=== PATIENT | female | born 1940 | race Caucasian/White ===

== ENCOUNTER → 2016-12-02 | Outpatient (CLI) | payer BC ==
[~2016-12-02] MED LIST: ALBU1AER9 INH; AMLO-114 PO; ASPI-232 PO; ATEN50TA8 PO; CLX20 PO; FLNIN NAE; FLVHFA220 INH; LPT/40 PO; LSX20 PO; MELO15TA4 PO; RANI300T2 PO; TRAM-10 PO
--- NOTE | 2016-12-04 12:33 | MAMMOGRAPHY REPORT ---
BILATERAL DIGITAL SCREENING MAMMOGRAM TOMOSYNTHESIS WITH CAD: 12/02/2016 CLINICAL HISTORY: Asymptomatic. Personal history of breast cancer. TECHNIQUE: Breast tomosynthesis in addition to standard 2D mammography was performed. Current study was also evaluated with a Computer Aided Detection (CAD) system. COMPARISON: Comparison is made to exams dated: 05/16/2015 mammogram, 03/07/2014 mammogram, 03/02/2013 mammogram, 02/04/2012 mammogram, 12/04/2010 mammogram, and 11/13/2009 mammogram - [facility] nter. BREAST COMPOSITION: The tissue of both breasts is almost entirely fatty. FINDINGS: There are stable postsurgical changes in the left breast, with surgical clips remaining in place in the 12:00 and central breast. No new suspicious mass, architectural distortion or cluster o f microcalcifications is seen. IMPRESSION: ACR BI-RADS CATEGORY 1: NEGATIVE There is no mammographic evidence of malignancy. A 1 year screening mammogram is recommended. The pa tient will receive written notification of the results. Approximately 10% of breast cancers are not detected with mammography. A negative mammographic report should not delay biopsy if a clinically suggestive mass is present. Eliza Ibarra M.D. ay/:12/02/2016 16:18:57 Online Merchandising Manager: Mary RIBERA)(Tyree)([place]), [facility] letter sent: Normal 1/2 BI-RADS Code: ACR BI-RADS Category 1: Negative
== END | disposition home or self-care (01) ==
LOC: C.MAMM 14:31
PROVIDERS: ATTEND Family Medicine
DX: Z12.31 Encounter for screening mammogram for malignant neoplasm of breast (principal); Z85.3 Personal history of malignant neoplasm of breast

== ENCOUNTER → 2016-12-27 | Outpatient (CLI) | payer BC | END | disposition home or self-care (01) | LOC: C.PATHSPEC 15:16 | PROVIDERS: ATTEND Dentist Oral and Maxillofacial Surgery | DX: S01.401A Unspecified open wound of right cheek and temporomandibular area, initial encounter (principal); X58.XXXA Exposure to other specified factors, initial encounter ==

== ENCOUNTER → 2018-01-06 | Outpatient (CLI) | payer BC ==
[~2018-01-06] MED LIST changes: -AMLO-114 PO; +AMLO10TA3 PO; +MELO-84 PO; -MELO15TA4 PO
== END | disposition home or self-care (01) ==
LOC: C.RDSM 10:24
PROVIDERS: ATTEND Orthopaedic Surgery
DX: M25.522 Pain in left elbow (principal)